=== PATIENT | female | born 1955 | race Caucasian/White ===

== ENCOUNTER 2016-11-13 01:49 | Inpatient (IN) | payer OTHER ==
[~2016-11-13] VITALS: Ht 160 cm; Wt 41.2 kg
[~2016-11-13 01:49] MED LIST: CEPHALEXIN500 M1 PO; ERGOCALCIF50000 UNIT PO; FOLIC ACID1 MG PO; LEVOTHYROXINE125 MCG PO; LEVOTHYROXINE137 MCG PO; METHOTREXATE2.5 MG PO; PREDNISONE10 MG PO; TRAMADOL HCL50 MG PO; TYLENOL REGULA325 MG PO; ULTRAM50 MG PO; UNITHROID125 MCG PO; VITAMIN D31000 UNIT PO
[2016-11-13 02:17] LABS: HEMATOCRIT 39.1 % (36.0-46.0); MCH 32.4 PG (29.0-34.0); MCHC 34.5 G/DL (30.0-36.0); MCV 93.8 FL (83-99); MEAN PLAT.VOLUME 9.1 uM^3 (9.5-12.4); PLATELET COUNT 291 K/uL (156-360); RBC DIS.WIDTH-CV 15.2 % (11.8-14.6); RBC DIS.WIDTH-SD 49.7 % (39-53); RED BLOOD COUNT 4.17 M/uL (3.80-5.20); WHITE BLOOD COUNT 13.9 K/uL (4.1-10.2)
[2016-11-13 02:41] LABS: TROP-I INTERPRETATION NEGATIVE; TROPONIN-I < 0.01 ng/mL (0.0-0.30)
[2016-11-13 03:38] LABS: CHLORIDE 114 mEq/L (99-109); POTASSIUM 3.8 mEq/L (3.7-5.4); SODIUM 144 mEq/L (136-147)
[2016-11-13 03:40] LABS: GLUCOSE 116 mg/dL (70-99)
[2016-11-13 03:42] LABS: ANION GAP 10 MEQ/L (2-14); TOTAL BILIRUBIN 0.6 mg/dL (0.0-1.0)
[2016-11-13 03:44] LABS: ALKALINE PHOSPHATASE 50 IU/L (3-129); GFR ESTIMATE (CALCULATED) > 59 mL/min/
[2016-11-13 03:45] LABS: UREA NITROGEN (BUN) 24 mg/dL (9-23)
[2016-11-13 03:47] LABS: LIPASE 39 U/L (1.0-51.0)
[2016-11-13 03:59] LABS: ADD MIUA? YES; BILIRUBIN NEGATIVE; BLOOD NEGATIVE; COLOR AMBER ((YELLOW)); GLUCOSE (STRIP) NEGATIVE; KETONES 5; LEUKOCYTES TRACE; NITRITE NEGATIVE; PROTEIN (STRIP) 30; UROBILINOGEN 0.2 MG/DL (0.2-1.0)
[2016-11-13 04:04] LABS: BACTERIA RARE /HPF; EPITHELIAL CELLS NONE SEEN /HPF; HYALINE CASTS 0-5 /LPF; MUCUS TRACE /LPF; RED BLOOD CELLS 0-5 /HPF (0-5); UCUL ADDED? NO; WHITE BLOOD CELLS 15-20 /HPF (0-5)
[2016-11-13 06:10] VITALS: BP 131/82
[2016-11-13 08:00] VITALS: BP 118/85
[2016-11-13 09:37] LABS: EOSINOPHIL COUNT 0.1 K/uL (0-0.3); HEMATOCRIT 33.9 % (36.0-46.0); IMMATURE GRANULOCYTE (%) 0.3 % (0.0-0.7); LYMPHOCYTE COUNT 0.2 K/uL (1.0-2.8); MCH 30.4 PG (29.0-34.0); MCHC 32.4 G/DL (30.0-36.0); MCV 93.6 FL (83-99); MONOCYTE (%) 3.1 % (3-12); MONOCYTE COUNT 0.2 K/uL (0-0.8); NEUTROPHIL COUNT 6.3 K/uL (1.8-6.4); RBC DIS.WIDTH-CV 15.2 % (11.8-14.6); RBC DIS.WIDTH-SD 50.8 % (39-53); RED BLOOD COUNT 3.62 M/uL (3.80-5.20)
[2016-11-13 09:38] LABS: WHITE BLOOD COUNT 6.8 K/uL (4.1-10.2)
[2016-11-13 09:47] LABS: C DIFF TOXIN NEGATIVE (NEGATIVE)
[2016-11-13 09:53] LABS: ALKALINE PHOSPHATASE 39 IU/L (3-129); ANION GAP 10 MEQ/L (2-14); CHLORIDE 110 MEQ/L (99-109); GFR ESTIMATE (CALCULATED) > 59 mL/min/; GLUCOSE 116 mg/dL (70-99); POTASSIUM 3.7 MEQ/L (3.7-5.4); SAMPLE HEMOLYSIS CHECK 0; SAMPLE ICTERIC CHECK 0; SAMPLE LIPEMIA CHECK 0; SODIUM 142 MEQ/L (136-147); TOTAL BILIRUBIN 0.8 MG/DL (0.0-1.0); UREA NITROGEN (BUN) 25 mg/dL (9-23)
[2016-11-13 10:07] LABS: PROBE CHECK PASS; SPECIMEN PROCESSING CONTROL PASS
[2016-11-13 10:56] LABS: PLAT.SUFFICIENCY ADEQUATE; PLATELET COUNT UNABLE TO REPORT K/uL (156-360)
[2016-11-13] MEDS ORDERED: VITAMIN E & D B52 ML PO (11:29)
[2016-11-13] MEDS ORDERED: CALCIUM 500 +1 EAC2 PO (11:30)
[2016-11-13] MEDS ORDERED: SOOTHE262 MG PO (11:33)
[2016-11-13] MEDS ORDERED: ANTACID 1000-21 EACH PO (11:33)
[2016-11-13] MEDS ORDERED: FLUOXETINE HCL20 MG PO (11:34)
[2016-11-13] MEDS ORDERED: SULINDAC200 MG PO (11:36)
[2016-11-13] MEDS ORDERED: CICLOPIROX30 GM TP (11:40)
[2016-11-13 12:46] VITALS: BP 116/55
[2016-11-13] MEDS ORDERED: PREDNISONE5 MG PO (15:18)
[2016-11-13 20:00] VITALS: BP 129/67
[2016-11-13 23:29] VITALS: BP 136/63
[2016-11-14 03:50] VITALS: BP 125/60
[2016-11-14 08:28] VITALS: BP 116/73
[2016-11-14 12:30] VITALS: BP 136/60
[2016-11-14 15:50] VITALS: BP 133/63
[2016-11-14 19:23] VITALS: BP 146/64
[2016-11-14 23:15] VITALS: BP 138/65
[2016-11-15 03:47] VITALS: BP 131/65
[2016-11-15 08:05] VITALS: BP 155/70
[2016-11-15 11:48] VITALS: BP 143/66
[2016-11-15 15:45] VITALS: BP 147/67
[2016-11-15 16:06] LABS: HEMATOCRIT 29.3 % (36.0-46.0); MCH 31.8 PG (29.0-34.0); MCHC 34.1 G/DL (30.0-36.0); MCV 93.3 FL (83-99); MEAN PLAT.VOLUME 8.4 uM^3 (9.5-12.4); PLATELET COUNT 196 K/uL (156-360); RBC DIS.WIDTH-CV 14.8 % (11.8-14.6); RBC DIS.WIDTH-SD 49.9 % (39-53); RED BLOOD COUNT 3.14 M/uL (3.80-5.20); WHITE BLOOD COUNT 4.2 K/uL (4.1-10.2)
[2016-11-15 16:13] LABS: ALKALINE PHOSPHATASE 32 IU/L (3-129); ANION GAP 5 MEQ/L (2-14); CHLORIDE 111 MEQ/L (99-109); GFR ESTIMATE (CALCULATED) > 59 mL/min/; GLUCOSE 99 mg/dL (70-99); POTASSIUM 3.3 MEQ/L (3.7-5.4); SAMPLE HEMOLYSIS CHECK 0; SAMPLE ICTERIC CHECK 0; SAMPLE LIPEMIA CHECK 0; SODIUM 142 MEQ/L (136-147)
[2016-11-15 16:14] LABS: TOTAL BILIRUBIN 0.5 MG/DL (0.0-1.0); UREA NITROGEN (BUN) 5 mg/dL (9-23)
[2016-11-15] MEDS ORDERED: CALCIUM 500 MG1 EACH PO (16:28)
[2016-11-15 19:52] VITALS: BP 147/69
[2016-11-15 23:58] VITALS: BP 145/65
[2016-11-16 03:40] VITALS: BP 146/67
[2016-11-16 07:32] LABS: EOSINOPHIL (%) 5.9 % (0-5); EOSINOPHIL COUNT 0.3 K/uL (0-0.3); HEMATOCRIT 30.8 % (36.0-46.0); IMMATURE GRANULOCYTE (%) 0.2 % (0.0-0.7); LYMPHOCYTE COUNT 1.3 K/uL (1.0-2.8); MCHC 33.8 G/DL (30.0-36.0); MCV 91.7 FL (83-99); MEAN PLAT.VOLUME 9.2 uM^3 (9.5-12.4); MONOCYTE (%) 9.7 % (3-12); MONOCYTE COUNT 0.5 K/uL (0-0.8); NEUTROPHIL (%) 60.7 % (45-76); NEUTROPHIL COUNT 3.3 K/uL (1.8-6.4); PLATELET COUNT 214 K/uL (156-360); RBC DIS.WIDTH-CV 14.9 % (11.8-14.6); RBC DIS.WIDTH-SD 49.5 % (39-53); RED BLOOD COUNT 3.36 M/uL (3.80-5.20); WHITE BLOOD COUNT 5.4 K/uL (4.1-10.2)
[2016-11-16 07:33] VITALS: BP 146/66
[2016-11-16 07:57] LABS: ANION GAP 7 MEQ/L (2-14); CHLORIDE 108 MEQ/L (99-109); GFR ESTIMATE (CALCULATED) > 59 mL/min/; GLUCOSE 94 mg/dL (70-99); POTASSIUM 3.4 MEQ/L (3.7-5.4); SAMPLE HEMOLYSIS CHECK 0; SAMPLE ICTERIC CHECK 0; SAMPLE LIPEMIA CHECK 0; SODIUM 141 MEQ/L (136-147); UREA NITROGEN (BUN) 2 mg/dL (9-23)
[2016-11-16 12:06] VITALS: BP 142/64
[2016-11-16 12:10] LABS: MAGNESIUM 1.5 mg/dl (1.3-2.7)
== END 2016-11-16 14:37 | disposition home or self-care (01) | DRG 872 ==
LOC: EME → EDBD 01:49 → EME 01:49 → EDOF 05:14 → 5WEST 05:52 → 2EAST 08:56 → 5WEST 08:56 → 2EAST 16:05
PROVIDERS: Emergency Medicine; Hospitalist
DX: A41.9 Sepsis, unspecified organism (principal); N39.0 Urinary tract infection, site not specified; A08.39 Other viral enteritis; F33.9 Major depressive disorder, recurrent, unspecified; Z68.1 Body mass index [BMI] 19.9 or less, adult; R00.0 Tachycardia, unspecified; E86.0 Dehydration; M06.9 Rheumatoid arthritis, unspecified; E03.9 Hypothyroidism, unspecified; F41.9 Anxiety disorder, unspecified; R63.6 Underweight; Z88.0 Allergy status to penicillin
CPT/HCPCS: 70450; 74177; 80048; 80053; 81003; 83605; 83690; 83735; 84484; 85025; 85027; 87040; 87493; 93005; 99281; 99285; J0696; J0744; J1650; J2405; J3475; J7030; J7050; J7070; J7512; S0030